=== PATIENT | female | born 1980 | race Caucasian/White ===

== ENCOUNTER 2023-01-06 18:36 | Emergency (ER) | payer MEDICAID ==
[~2023-01-06] VITALS: Ht 160 cm; Wt 63.6 kg
[~2023-01-06 18:36] MED LIST: ARIP2TAB5 PO; CLON-528 PO; METH500T PO; ONDA4TAB6 PO; VENL25TA48
[2023-01-06 18:48] VITALS: BP 114/79
--- NOTE | 2023-01-06 18:53 | NUR ---
states she had an US and that she is 12 weeks . UA collected
[2023-01-06 19:19] LABS: CLARITY,URINE SLIGHTLY CLOUDY (Clear); COLOR,URINE YELLOW (Yellow); GLUCOSE, URINE NEGATIVE (Neg); KETONES,URINE NEGATIVE (Neg); LEUKOCYTE ESTERASE ,URINE NEGATIVE (Neg); NITRITES, URINE NEGATIVE (Neg); OCCULT BLOOD,URINE NEGATIVE (Neg); PROTEIN,URINE NEGATIVE (Neg)
[2023-01-06 19:20] LABS: URINE HCG POSITIVE (NEG)
[2023-01-06 19:24] LABS: UA COLLECTION TYPE CLN CATCH MIDSTREAM
[2023-01-06 19:25] LABS: SQUAMOUS EPITHELIAL CELL,UR MODERATE /LPF (FEW)
[2023-01-06 19:26] LABS: BACTERIA,URINE 3+ /HPF (Neg)
[2023-01-06 19:27] LABS: HYALINE CASTS 0-3 /LPF (NEGATIVE); RBC,URINE 0-2 /HPF (0-2); WBC,URINE 0-4 /HPF (0-4)
== END 2023-01-06 19:59 | disposition left against medical advice (07) ==
LOC: ER 18:36
DX: O26.891 Other specified pregnancy related conditions, first trimester (principal); F11.10 Opioid abuse, uncomplicated; Z53.21 Procedure and treatment not carried out due to patient leaving prior to being seen by health care provider; Z3A.12 12 weeks gestation of pregnancy
CPT/HCPCS: 81001; 81025

== ENCOUNTER 2023-03-17 00:22 | Emergency (ER) | payer MEDICAID ==
[~2023-03-17] VITALS: Ht 157.5 cm; Wt 70.0 kg
[2023-03-17 00:27] VITALS: BP 114/72
[2023-03-17 01:08] LABS: CLARITY,URINE SLIGHTLY CLOUDY (Clear); COLOR,URINE YELLOW (Yellow); GLUCOSE, URINE 100 mg/dl (Neg); KETONES,URINE TRACE mg/dl (Neg); LEUKOCYTE ESTERASE ,URINE NEGATIVE (Neg); NITRITES, URINE POSITIVE (Neg); OCCULT BLOOD,URINE TRACE-INTACT (Neg); PROTEIN,URINE 30 mg/dl (Neg); UROBILINOGEN,URINE 0.2 E.U/dL (0.2-1.0)
[2023-03-17 01:09] LABS: URINE HCG POSITIVE (NEG)
[2023-03-17 01:19] LABS: UA COLLECTION TYPE CLN CATCH MIDSTREAM
[2023-03-17 01:20] LABS: SQUAMOUS EPITHELIAL CELL,UR MODERATE /LPF (FEW)
[2023-03-17 01:21] LABS: BACTERIA,URINE 4+ /HPF (Neg); MUCUS STRANDS MODERATE /LPF (Neg)
[2023-03-17 01:23] LABS: TRANSITIONAL EPI CELLS,URINE FEW /HPF
== END 2023-03-17 01:27 | disposition home or self-care (01) ==
LOC: ER 00:23
DX: O00.91 Unspecified ectopic pregnancy with intrauterine pregnancy (principal); O34.519 Maternal care for incarceration of gravid uterus, unspecified trimester; Z56.0 Unemployment, unspecified
CPT/HCPCS: 81001; 81025; 87077; 87088; 87186; 99283; 99284

== ENCOUNTER 2023-04-01 08:54 | Emergency (ER) | payer MEDICAID ==
[~2023-04-01] VITALS: Ht 160 cm; Wt 72.7 kg
[2023-04-01 09:00] VITALS: BP 132/77
== END 2023-04-01 09:33 ==
LOC: ER 08:55
DX: O26.891 Other specified pregnancy related conditions, first trimester (principal); G89.29 Other chronic pain; M54.9 Dorsalgia, unspecified; F15.10 Other stimulant abuse, uncomplicated; F31.9 Bipolar disorder, unspecified; Z56.0 Unemployment, unspecified; Z79.899 Other long term (current) drug therapy
CPT/HCPCS: 99283